=== PATIENT | female | born 1950 | race Two or more races ===

== ENCOUNTER 2018-08-22 09:08 | Day surgery (SDC) | payer OTHER ==
[~2018-08-22 09:08] MED LIST: DUI500 PO; RESTORIL30 M1 PO; SEROQUEL200 MG PO; TRAM1TAB98 PO; XANAX1 MG PO
== END 2018-08-22 16:20 | disposition home or self-care (01) ==
LOC: CIR.AMB 09:08
DX: M75.122 Complete rotator cuff tear or rupture of left shoulder, not specified as traumatic (principal); M75.22 Bicipital tendinitis, left shoulder; S46.212A Strain of muscle, fascia and tendon of other parts of biceps, left arm, initial encounter

== ENCOUNTER 2019-10-08 13:02 | Outpatient (CLI) | payer OTHER | END 2019-10-08 13:15 | disposition home or self-care (01) | LOC: SONOGRAMA 13:02 → MAMO-SONO 13:15 → SONOGRAMA 13:15 | DX: R22.42 Localized swelling, mass and lump, left lower limb (principal); M05.51 Rheumatoid polyneuropathy with rheumatoid arthritis of shoulder ==

== ENCOUNTER 2019-12-17 07:12 | Outpatient (CLI) | payer OTHER | END 2019-12-17 07:15 | disposition home or self-care (01) | LOC: NUCLEAR 07:12 | DX: I70.213 Atherosclerosis of native arteries of extremities with intermittent claudication, bilateral legs (principal); I87.2 Venous insufficiency (chronic) (peripheral) ==

== ENCOUNTER 2019-12-17 09:11 | Outpatient (CLI) | payer OTHER | END 2019-12-17 09:12 | disposition home or self-care (01) | LOC: SONOGRAMA 09:11 | DX: R22.32 Localized swelling, mass and lump, left upper limb (principal) ==

== ENCOUNTER 2019-12-24 06:07 | Outpatient (CLI) | payer OTHER | END 2019-12-24 06:18 | disposition home or self-care (01) | LOC: LAB 06:07 | DX: I11.9 Hypertensive heart disease without heart failure (principal); K92.1 Melena; E55.9 Vitamin D deficiency, unspecified; R31.29 Other microscopic hematuria; J06.9 Acute upper respiratory infection, unspecified ==

== ENCOUNTER 2019-12-24 07:28 | Outpatient (CLI) | payer OTHER | END 2019-12-24 07:38 | disposition home or self-care (01) | LOC: NUCLEAR 07:28 | DX: I70.213 Atherosclerosis of native arteries of extremities with intermittent claudication, bilateral legs (principal); I87.2 Venous insufficiency (chronic) (peripheral) ==

== ENCOUNTER 2020-03-26 07:25 | Outpatient (CLI) | payer OTHER | END 2020-03-26 08:09 | disposition home or self-care (01) | LOC: MAMO-SONO 07:25 | PROVIDERS: ATTEND Surgery | DX: R92.8 Other abnormal and inconclusive findings on diagnostic imaging of breast (principal); N64.59 Other signs and symptoms in breast ==

== ENCOUNTER 2022-11-13 07:05 | Outpatient (CLI) | payer OTHER | END 2022-11-13 07:10 | disposition home or self-care (01) | LOC: RAD 07:05 | PROVIDERS: ATTEND Internal Medicine Gastroenterology | DX: M54.59 Other low back pain (principal) ==

== ENCOUNTER → 2022-11-14 | Outpatient (CLI) | payer OTHER | END | disposition home or self-care (01) | LOC: NUCLEAR 11-13 07:00 | PROVIDERS: ATTEND Internal Medicine Cardiovascular Disease | DX: I25.10 Atherosclerotic heart disease of native coronary artery without angina pectoris (principal) | CPT/HCPCS: 78452; 93017; A9500; J0153 ==

== ENCOUNTER → 2023-07-02 07:28 | Outpatient (CLI) | payer OTHER | END | disposition home or self-care (01) | LOC: NUCLEAR 07:28 | PROVIDERS: ATTEND Internal Medicine | DX: I87.2 Venous insufficiency (chronic) (peripheral) (principal); I73.9 Peripheral vascular disease, unspecified ==

== ENCOUNTER 2023-07-31 09:34 | Outpatient (CLI) | payer OTHER | END 2023-07-31 09:36 | disposition home or self-care (01) | LOC: NUCLEAR 09:34 | PROVIDERS: ATTEND Internal Medicine | DX: I87.2 Venous insufficiency (chronic) (peripheral) (principal); I73.9 Peripheral vascular disease, unspecified ==